=== PATIENT | male | born 1985 | race Caucasian/White ===

== ENCOUNTER 2018-12-24 13:01 | Emergency (ER) | payer BC ==
[2018-12-24] MEDS ORDERED: Metoclopramide 10 MG/2 ML SDV IVPUSH ONE (13:29)
[2018-12-24] MEDS ORDERED: HYDROmorphone 1 MG/ML Syringe IVPUSH ONE (13:29)
[2018-12-24] MEDS ORDERED: Ketorolac 30 MG/ML SDV IVPUSH SCH (13:30)
[2018-12-24] MEDS ORDERED: Sodium Chloride 0.9% 1,000 ML IV SCH (13:30)
--- NOTE | 2018-12-24 13:32 | EDM.PDOC ---
ED HPI GENERAL MEDICAL PROBLEM - General Chief Complaint: Flank Pain Stated Complaint: KIDNEY PAIN Time Seen by Provider: 12/24/18 13:27 Source of Information: Reports: Patient History Limitations: Reports: No Limitations - History of Present Illness INITIAL COMMENTS - FREE TEXT/NARRATIVE: 33-year-old male presents to the ED with acute onset of severe right flank pain about 0900 hrs. this morning. Associated almost immediate nausea and vomiting and dry heaving since. Has a constant feeling of need to void but unable to do so and has had several small bowel movements. Patient has a history of renal lithiasis about 5 years ago. Not noticed any change in color and is urine. No position is comfortable. Onset: Today Onset Date: 12/24/18 Onset Time: 09:00 Duration: Hour(s):, Getting Worse Location: Reports: Abdomen (Right flank right upper abdomen), Back Quality: Reports: Other Severity: Severe (Deep aching pain with strong colicky component.) Improves with: Reports: None (No position is comfortable.) Worsens with: Reports: None Context: Reports: Other (Spontaneous occurrence of right flank pain about 0900 hrs.). 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.) Right Flank Pain Score (Numeric/FACES): 10 - Related Data Allergies Allergy/AdvReac Type Severity Reaction Status Date / Time No Known Allergies Allergy Verified 12/24/18 13:21 Home Meds: Home Meds Meloxicam 7.5 mg PO DAILY 12/24/18 [History] Ondansetron [Zofran] 4 mg BUCCAL Q6H PRN #6 tab 12/24/18 [Rx] oxyCODONE HCl/Acetaminophen [Percocet 5-325 mg Tablet] 1 - 2 each PO Q4H PRN # 14 tablet 12/24/18 [Rx] Past Medical History Genitourinary History: Reports: Renal Calculus (He had renal stone about 5 years ago.) Social & Family History - Living Situation & Occupation Occupation: Employed ED ROS GENERAL - Review of Systems Review Of Systems: See Below Constitutional: Reports: No Symptoms HEENT: Reports: No Symptoms Respiratory: Reports: No Symptoms Cardiovascular: Reports: No Symptoms Endocrine: Reports: No Symptoms GI/Abdominal: Reports: No Symptoms : Reports: No Symptoms Musculoskeletal: Reports: No Symptoms Skin: Reports: No Symptoms Neurological: Reports: No Symptoms Psychiatric: Reports: No Symptoms Hematologic/Lymphatic: Reports: No Symptoms Immunologic: Reports: No Symptoms ED EXAM, GI/ABD - Physical Exam Exam: See Below Exam Limited By: Physical Impairment (He is in so much pain is not able to offer much history at this time) General Appearance: Alert ( also vomiting.), WD/WN, Severe Distress Eyes: Bilateral: Normal Appearance (Writhing all over the bed in no position comfortable) Throat/Mouth: Normal Inspection, Normal Oropharynx, Other Head: Atraumatic, Normocephalic Neck: Normal Inspection, Supple, Non-Tender, Full Range of Motion. No: Lymphadenopathy (L), Lymphadenopathy (R) Respiratory/Chest: Lungs Clear, Normal Breath Sounds, No Accessory Muscle Use, Respiratory Distress (Mild tachypnea.) Cardiovascular: Normal Peripheral Pulses, Regular Rate, Rhythm, No Edema (59/m) , No Gallop, No Murmur, No Rub, Bradycardia GI/Abdominal Exam: Soft, Non-Tender, No Organomegaly, No Abnormal Bruit, No Mass , Pelvis Stable, Abnormal Bowel Sounds (No bowel sounds present.), Other (No surgical scars) Back Exam: CVA Tenderness (R) (Mild.). No: CVA Tenderness (L), Decreased Range of Motion, Muscle Spasm Extremities: Normal Inspection, Normal Range of Motion, Non-Tender, No Pedal Edema Neurological: Alert, Oriented, CN II-XII Intact, Normal Cognition Skin Exam: Warm, Dry, Intact, Normal Color, No Rash Course - Vital Signs Last Recorded V/S: Last Vital Signs Temp 36.7 C 12/24/18 13:18 Pulse 59 L 12/24/18 13:18 Resp 20 12/24/18 13:18 BP Pulse Ox 100 12/24/18 13:18 - Orders/Labs/Meds Orders: Active Orders 24 hr Category Date Time Status URINALYSIS W/MICROSCOPIC [UA W/MICROSCOPIC] [URIN] Stat Lab 12/24/18 13:29 Ordered Meds: Medications Discontinued Medications Generic Name Dose Route Start Last Admin Trade Name Freq PRN Reason Stop Dose Admin Hydromorphone HCl 1 mg 12/24/18 13:29 12/24/18 13:38 Dilaudid IVPUSH 12/24/18 13:30 1 mg ONETIME ONE Administration Sodium Chloride 1,000 mls @ 150 mls/hr 12/24/18 13:30 12/24/18 13:38 Normal Saline IV 150 mls/hr ASDIRECTED JUAN Administration Ketorolac Tromethamine 30 mg 12/24/18 13:30 12/24/18 13:37 Toradol IVPUSH 30 mg ONETIME JUAN Administration Metoclopramide HCl 10 mg 12/24/18 13:29 12/24/18 13:39 Reglan IVPUSH 12/24/18 13:30 10 mg ONETIME ONE Administration - Radiology Interpretation Free Text/Narrative:: 33-year-old male presents to the ED with acute onset of severe right flank pain starting about 9:00 this morning. Associated nausea vomiting and a feeling of need to void and defecate. No position is carpal. Patient had a previous right kidney stone 5 years ago which was not near as bad. Pain at this time is staying mostly in his right flank and right upper quadrant of the abdomen suggesting a stone is in the proximal right ureter. Plan IV normal saline at 150 mils per hour. Given Reglan 10 mg IV with Dilaudid 1 mg IV and Toradol 30 mg IV for acute pain relief. Plan urinalysis when one becomes available CT scan of the abdomen per renal protocol - Re-Assessments/Exams Free Text/Narrative Re-Assessment/Exam: 12/24/18 14:43 patient reports his pain is pretty well gone. CT reveals mild hydronephrosis of the right kidney prominent ureter on the right side all way down to the UVJ. This finding is caused by an obstructing stone measuring 4.4 mm within the distal right ureter. Stones are identified in either kidney to be problematic in the future. Pancreas is normal gallbladder contains no calcified gallstones aorta shows no aneurysm. Appendix is not definitively visualized. Visual be discharged home on Zofran 4 mg sublingually every 6 hours when necessary for nausea relief. Percocet tabs 5//25 one or 2 every 4-6 hours as needed for relief of pain. Patient be sent home with a urine strainer and totally nose that he passed a stone. Departure - Departure Time of Disposition: 14:44 Disposition: Home, Self-Care 01 Condition: Fair Clinical Impression: Renal colic on right side, Ureteric colic - Discharge Information *PRESCRIPTION DRUG MONITORING PROGRAM REVIEWED*: Not Applicable *COPY OF PRESCRIPTION DRUG MONITORING REPORT IN PATIENT JERONIMO: Not Applicable Prescriptions: Ondansetron [Zofran] 4 mg BUCCAL Q6H PRN #6 tab PRN Reason: nausea or vomiting oxyCODONE HCl/Acetaminophen [Percocet 5-325 mg Tablet] 1 - 2 each PO Q4H PRN # 14 tablet PRN Reason: pain relief. Instructions: Renal Colic, [id number] Referrals: PCP,Not In Area [Primary Care Provider] - Forms: ED Department Discharge Additional Instructions: Evaluation in the emergency him today in regards to acute onset of severe right flank pain starting about 0900 hrs. this morning associate with development of nausea and vomiting and a constant feeling of need to defecate and void. These are all the signs and symptoms of a kidney stone. You report you had a kidney stone at least once in the past. You're treated with intravenous fluids and given pain management with Dilaudid 1 mg and Reglan 10 mg and Toradol 30 mg IV for acute pain relief. CT scan of the abdomen was performed per renal protocol it identifies a 4.4 mm stone on the right side about three quarters of an inch above the juncture of the ureter with the bladder. Stone therefore will pass likely over the next 2-14 days. Cavity as tolerated. When the stone starts to move the pain will return. Zofran under the tongue 4 mg and 2 tablets of Percocet to relieve the pain. Strain the urine until stone has been identified to past. If the stone hasn't passed in 3 weeks then we usually would advise follow-up with urology services to have the stone removed surgically. This is highly unlikely as the stone is less than 5 mm and has an 85% plus chance of passing on its own. Of note no stones were identified within the gallbladder and no stones in either kidney to be problematic in the near future. Diet is to be no calcium added diet as we discussed - My Orders Last 24 Hours: My Active Orders 12/24/18 13:29 URINALYSIS W/MICROSCOPIC [UA W/MICROSCOPIC] [URIN] Stat - Assessment/Plan Last 24 Hours: My Active Orders 12/24/18 13:29 URINALYSIS W/MICROSCOPIC [UA W/MICROSCOPIC] [URIN] Stat
--- NOTE | 2018-12-24 14:51 | CT ---
CT abdomen and pelvis Technique: Multiple axial sections were obtained from above the dome of the diaphragm inferiorly to the pubic symphysis. Intravenous and oral contrast not utilized. Study has been performed as a ureteral stone protocol. Findings: Kidneys show no abnormal calcifications. Ureter is prominent on the right side down to the UVJ. This finding is caused by an obstructing stone measuring 4.4 mm within the distal right ureter slightly proximal to the UVJ. No other abnormal ureteral calcifications are seen. Small portion of the visualized lung bases are clear. Noncontrast appearance of the liver and spleen appears within normal limits. Adrenal glands show no nodule. Pancreas is normal. Gallbladder contains no calcified gallstones. Aorta shows no aneurysm. No retroperitoneal adenopathy is seen. No mesenteric abnormalities are seen. No pelvic mass or adenopathy is seen. No free fluid or inflammatory change is seen. Appendix not definitely visualized. Bone window settings were reviewed which appear within normal limits for the patient's age. Impression: 1. Mildly dilated right ureter caused by a 4.4 mm obstructing stone within the distal right ureter located slightly proximal to the UVJ. 2. No other acute abnormality is seen. Diagnostic code #3
== END 2018-12-24 15:11 | disposition home or self-care (01) ==
LOC: JD.ED 13:01
DX: N23 Unspecified renal colic (principal)
CPT/HCPCS: 74176; 96361; 96374; 96375; 99284; J1170; J1885; J2765; J7040